=== PATIENT | male | born 1995 | race Hispanic/Latino ===

== ENCOUNTER 2024-02-19 21:48 | Emergency (ER) | payer OTHER ==
[~2024-02-19] VITALS: Ht 180.3 cm; Wt 120.2 kg
[2024-02-19 22:23] LABS: APPEARANCE,URINE CLEAR (CLEAR); BILIRUBIN,URINE NEGATIVE (NEGATIVE); COLOR,URINE COLORLESS (YELLOW); GLUCOSE, URINE (UA) NEGATIVE (NEGATIVE); KETONES,URINE NEGATIVE (NEGATIVE); LEUKOCYTE ESTERASE ,URINE NEGATIVE Leu/uL (NEGATIVE); NITRATE,URINE NEGATIVE (NEGATIVE); OCCULT BLOOD,URINE NEGATIVE (NEGATIVE); PROTEIN,URINE NEGATIVE (NEGATIVE); UROBILINOGEN,URINE 0.2 mg/dL (0.2-1.0)
[2024-02-19 22:24] LABS: ADD UA MICROSCOPIC NO
[2024-02-19 22:26] LABS: AMPHET/METH SCREEN,URINE NEGATIVE (NEGATIVE); BARBITURATE SCREEN, URINE NEGATIVE (NEGATIVE); BENZODIAZEPINES SCREEN,URINE NEGATIVE (NEGATIVE); CANNABINOID SCREEN,URINE NEGATIVE (NEGATIVE); COCAINE SCREEN,URINE NEGATIVE (NEGATIVE); OPIATE SCREEN,URINE NEGATIVE (NEGATIVE); PHENCYCLIDINE SCREEN,URINE NEGATIVE (NEGATIVE)
[2024-02-19] MEDS: LACTATED RINGERS 1000ML 1,000 ML IV ONE (22:52)
[2024-02-19 23:02] LABS: BASOPHILS # (AUTO) 0.05 K/uL (0.00-0.20); BASOPHILS % (AUTO) 0.5 % (0.0-5.0); EOSINOPHILS # (AUTO) 0.08 K/uL (0.00-0.70); EOSINOPHILS % (AUTO) 0.8 % (0.0-8.0); HEMATOCRIT 41.9 % (42-54); IMMATURE GRANULOCYTE ABSOLUTE 0.05 K/uL (0-1); LYMPHOCYTES # (AUTO) 1.5 K/uL (1.0-4.8); LYMPHOCYTES % (AUTO) 14.7 % (21.0-51.0); MEAN CORPUSCULAR HEMOGLOBIN 32.7 pg (27.0-33.0); MEAN CORPUSCULAR HGB CONC 35.1 g/dL (32.0-36.0); MEAN CORPUSCULAR VOLUME 93.3 fL (79-99); MONOCYTES # (AUTO) 1.3 K/uL (0.1-1.0); MONOCYTES % (AUTO) 12.7 % (3.0-13.0); NEUTROPHILS # (AUTO) 7.4 K/uL (1.8-7.7); NEUTROPHILS % (AUTO) 70.8 % (40.0-77.0); PLATELET COUNT (AUTO) 252 K/uL (130-400); RED BLOOD CELL COUNT(AUTO) 4.49 MIL/uL (4.50-6.20); RED CELL DISTRIBUTION WIDTH 11.8 % (11.0-15.5); WHITE BLOOD COUNT (AUTO) 10.4 K/uL (4.8-10.8)
[2024-02-19 23:11] LABS: CREATININE 1.2 mg/dL (0.5-1.3); POTASSIUM 3.6 mmol/L (3.5-5.1)
[2024-02-19 23:18] LABS: ALBUMIN 3.8 g/dL (3.5-5.0); BILIRUBIN,TOTAL 0.3 mg/dL (0.2-1.0); TOTAL PROTEIN, SERUM 7.3 g/dL (6.0-8.3)
[2024-02-19] MEDS: ACETAMINOPHEN 500 MG TABLET PO ONE (23:38)
[2024-02-19] MEDS ORDERED: PANT40TA55 PO (23:53)
[2024-02-20 00:02] VITALS: BP 135/83; PULSE 88; RESP 18; O2SAT 98
== END 2024-02-20 00:03 | disposition home or self-care (01) ==
LOC: EDH 21:48
DX: K29.70 Gastritis, unspecified, without bleeding (principal); I10 Essential (primary) hypertension; Z88.5 Allergy status to narcotic agent
CPT/HCPCS: 99284; 74176; 80053; 80305; 85025; 36415; 81003; J7120

== ENCOUNTER 2024-02-24 01:58 | Emergency (ER) | payer OTHER ==
[~2024-02-24] VITALS: Ht 182.9 cm; Wt 115.7 kg
[~2024-02-24 01:58] MED LIST: PANT40TA55 PO
[2024-02-24] MEDS: KETOROLAC 30MG VIAL (30MG/ML) IVP ONE (02:12)
[2024-02-24 02:19] LABS: BASOPHILS # (AUTO) 0.06 K/uL (0.00-0.20); BASOPHILS % (AUTO) 0.5 % (0.0-5.0); EOSINOPHILS # (AUTO) 0.05 K/uL (0.00-0.70); EOSINOPHILS % (AUTO) 0.4 % (0.0-8.0); HEMATOCRIT 42.2 % (42-54); IMMATURE GRANULOCYTE ABSOLUTE 0.04 K/uL (0-1); LYMPHOCYTES # (AUTO) 1.6 K/uL (1.0-4.8); LYMPHOCYTES % (AUTO) 13.8 % (21.0-51.0); MEAN CORPUSCULAR HEMOGLOBIN 32.1 pg (27.0-33.0); MEAN CORPUSCULAR HGB CONC 35.3 g/dL (32.0-36.0); MEAN CORPUSCULAR VOLUME 90.9 fL (79-99); MONOCYTES # (AUTO) 1.4 K/uL (0.1-1.0); MONOCYTES % (AUTO) 12.5 % (3.0-13.0); NEUTROPHILS # (AUTO) 8.3 K/uL (1.8-7.7); NEUTROPHILS % (AUTO) 72.5 % (40.0-77.0); PLATELET COUNT (AUTO) 269 K/uL (130-400); RED BLOOD CELL COUNT(AUTO) 4.64 MIL/uL (4.50-6.20); RED CELL DISTRIBUTION WIDTH 11.7 % (11.0-15.5); WHITE BLOOD COUNT (AUTO) 11.5 K/uL (4.8-10.8)
[2024-02-24 02:31] LABS: CREATININE 1.6 mg/dL (0.5-1.3)
[2024-02-24 02:35] LABS: BILIRUBIN,TOTAL 0.5 mg/dL (0.2-1.0); TOTAL PROTEIN, SERUM 7.8 g/dL (6.0-8.3)
[2024-02-24 02:35] LABS: APPEARANCE,URINE CLEAR (CLEAR); BILIRUBIN,URINE NEGATIVE (NEGATIVE); COLOR,URINE COLORLESS (YELLOW); GLUCOSE, URINE (UA) NEGATIVE (NEGATIVE); KETONES,URINE NEGATIVE (NEGATIVE); LEUKOCYTE ESTERASE ,URINE NEGATIVE Leu/uL (NEGATIVE); NITRATE,URINE NEGATIVE (NEGATIVE); OCCULT BLOOD,URINE NEGATIVE (NEGATIVE); PROTEIN,URINE NEGATIVE (NEGATIVE); UROBILINOGEN,URINE 0.2 mg/dL (0.2-1.0)
[2024-02-24 02:36] LABS: RBC,URINE 0-1 /HPF (0-1); WBC,URINE 0-1 /HPF (0-1)
[2024-02-24] MEDS: ACETAMINOPHEN WITH CODEINE 1 TAB TAB PO ONE ×2 (02:48→04:04)
[2024-02-24] MEDS ORDERED: KETO10TA2 PO (03:32)
[2024-02-24] MEDS: BACLOFEN 10 MG TABLET PO SCH (03:38)
[2024-02-24] MEDS: FAMOTIDINE 20MG VIAL IV ONE (03:38)
[2024-02-24] MEDS: LACTATED RINGERS 1000ML 1,000 ML IV ONE (03:39)
[2024-02-24 03:53] VITALS: BP 134/82; PULSE 73; RESP 18; O2SAT 97
[2024-02-24] MEDS: KETOROLAC 15MG/ML VIAL (15MG/ML) IV ONE (04:04)
== END 2024-02-24 04:22 | disposition home or self-care (01) ==
LOC: EDH 01:58
DX: R10.9 Unspecified abdominal pain (principal); G43.909 Migraine, unspecified, not intractable, without status migrainosus; I10 Essential (primary) hypertension; Z88.5 Allergy status to narcotic agent; Z88.8 Allergy status to other drugs, medicaments and biological substances
CPT/HCPCS: 99285; 74176; 96374; 96375; 80053; 85025; 81001; 36415; 96376; J7120; J3490; J1885 ×2

== ENCOUNTER 2024-04-08 08:48 | Inpatient (IN) | payer OTHER ==
[~2024-04-08] VITALS: Ht 182.9 cm; Wt 109.1 kg
[~2024-04-08 08:48] MED LIST changes: +KETO10TA2 PO
[2024-04-08 10:03] LABS: BASOPHILS # (AUTO) 0.05 K/uL (0.00-0.20); BASOPHILS % (AUTO) 0.5 % (0.0-5.0); EOSINOPHILS # (AUTO) 0.19 K/uL (0.00-0.70); HEMATOCRIT 43.2 % (42-54); IMMATURE GRANULOCYTE ABSOLUTE 0.03 K/uL (0-1); LYMPHOCYTES # (AUTO) 1.1 K/uL (1.0-4.8); LYMPHOCYTES % (AUTO) 11.1 % (21.0-51.0); MEAN CORPUSCULAR HGB CONC 35.2 g/dL (32.0-36.0); MEAN CORPUSCULAR VOLUME 93.9 fL (79-99); MONOCYTES # (AUTO) 1.3 K/uL (0.1-1.0); MONOCYTES % (AUTO) 13.9 % (3.0-13.0); NEUTROPHILS # (AUTO) 6.9 K/uL (1.8-7.7); NEUTROPHILS % (AUTO) 72.2 % (40.0-77.0); PLATELET COUNT (AUTO) 159 K/uL (130-400); RED CELL DISTRIBUTION WIDTH 11.8 % (11.0-15.5); WHITE BLOOD COUNT (AUTO) 9.5 K/uL (4.8-10.8)
[2024-04-08] MEDS: KETOROLAC 15MG/ML VIAL (15MG/ML) IM ONE (10:21)
[2024-04-08 10:31] LABS: ALBUMIN 3.6 g/dL (3.5-5.0); BILIRUBIN,TOTAL 0.7 mg/dL (0.2-1.0); CREATININE 0.7 mg/dL (0.5-1.3); POTASSIUM 3.4 mmol/L (3.5-5.1); TOTAL PROTEIN, SERUM 7.7 g/dL (6.0-8.3)
[2024-04-08 10:58] LABS: INR 1.08 (0.85-1.15); PROTHROMBIN TIME 11.6 SEC (9.6-11.6)
[2024-04-08 10:59] LABS: PARTIAL THROMBOPLASTIN TIME 26.8 SEC (26.3-35.5)
[2024-04-08] MEDS ORDERED: ONDANSETRON 4MG INJ IV PRN (11:00)
[2024-04-08] MEDS ORDERED: MAGNESIUM 2GM PREMIX 50ML 50 ML IV PRN (11:00)
[2024-04-08] MEDS ORDERED: ZOLPIDEM TARTRATE 5 MG TAB PO PRN (11:00)
[2024-04-08] MEDS ORDERED: MAG/ALUM/SIMETH 30 ML UDCUP PO PRN (11:00)
[2024-04-08] MEDS ORDERED: FAMOTIDINE 20MG VIAL IV PRN (11:00)
[2024-04-08] MEDS ORDERED: DiphenhydrAMINE HCL 50 MG/ML VIAL IV PRN (11:00)
[2024-04-08] MEDS ORDERED: GLUCAGON 1MG KIT 1 MG ML IM PRN (11:00)
[2024-04-08] MEDS ORDERED: LACTULOSE 20 GM/30 ML UDCUP PO PRN (11:00)
[2024-04-08] MEDS ORDERED: HYDRALAZINE 20MG/ML VIAL IV PRN (11:00)
[2024-04-08] MEDS ORDERED: DEXTROSE 50%-WATER 50 ML DISP.SYRIN IV PRN (11:00)
[2024-04-08] MEDS ORDERED: GUAIFENESIN-DM 200/20 MG 10 ML PO PRN (11:00)
[2024-04-08] MEDS ORDERED: POTASSIUM CHLORIDE 10% ELIXIR 20 MEQ/15 ML UDCUP PO PRN (11:00)
[2024-04-08] MEDS ORDERED: POTASSIUM CHLORIDE 10MEQ/100ML 100 ML IV PRN (11:00)
[2024-04-08] MEDS ORDERED: ACETAMINOPHEN 325 MG TAB PO PRN ×2 (11:00)
[2024-04-08] MEDS: HEPARIN 5,000 UNIT VIAL IV PRN (11:15)
[2024-04-08] MEDS: HEPARIN 25,000 UNITS/250ML D5W 250 ML IV SCH (11:17)
[2024-04-08] MEDS: INSULIN HUMULIN R 100 UNIT/ML 3ML SQ SCH (11:30)
[2024-04-08] MEDS: KETOROLAC 15MG/ML VIAL (15MG/ML) IV PRN (17:05)
[2024-04-08] MEDS: ACETAMINOPHEN 325 MG TAB PO PRN (17:06)
[2024-04-08] MEDS ORDERED: LOSA100T59 PO (19:21)
[2024-04-08] MEDS ORDERED: KETOROLAC 10 MG TABLET PO SCH (21:00)
[2024-04-08] MEDS: HYDROCODONE/ACETAMINOPHEN 5/325 MG TAB PO SCH (21:39)
[2024-04-08] MEDS: FAMOTIDINE 20MG VIAL IV SCH (21:40)
[2024-04-08 23:20] VITALS: BP 135/88; PULSE 50; RESP 16
[2024-04-09] MEDS: HYDROCODONE/ACETAMINOPHEN 5/325 MG TAB ONE (03:19)
[2024-04-09] MEDS: HYDROCODONE/ACETAMINOPHEN 5/325 MG TAB PO PRN (03:20)
[2024-04-09] MEDS ORDERED: HYDROCODONE/ACETAMINOPHEN 5/325 MG TAB PO PRN (03:30)
[2024-04-09 03:33] LABS: BASOPHILS # (AUTO) 0.04 K/uL (0.00-0.20); BASOPHILS % (AUTO) 0.5 % (0.0-5.0); EOSINOPHILS # (AUTO) 0.19 K/uL (0.00-0.70); EOSINOPHILS % (AUTO) 2.5 % (0.0-8.0); HEMATOCRIT 42.3 % (42-54); IMMATURE GRANULOCYTE ABSOLUTE 0.05 K/uL (0-1); LYMPHOCYTES # (AUTO) 1.7 K/uL (1.0-4.8); LYMPHOCYTES % (AUTO) 21.9 % (21.0-51.0); MEAN CORPUSCULAR HEMOGLOBIN 32.2 pg (27.0-33.0); MEAN CORPUSCULAR VOLUME 94.6 fL (79-99); MONOCYTES # (AUTO) 1.3 K/uL (0.1-1.0); MONOCYTES % (AUTO) 16.6 % (3.0-13.0); NEUTROPHILS # (AUTO) 4.5 K/uL (1.8-7.7); NEUTROPHILS % (AUTO) 57.9 % (40.0-77.0); PLATELET COUNT (AUTO) 204 K/uL (130-400); RED BLOOD CELL COUNT(AUTO) 4.47 MIL/uL (4.50-6.20); RED CELL DISTRIBUTION WIDTH 11.9 % (11.0-15.5); WHITE BLOOD COUNT (AUTO) 7.7 K/uL (4.8-10.8)
[2024-04-09 03:52] LABS: HEMOGLOBIN A1C 4.7 % (4.0-6.0)
[2024-04-09 03:53] VITALS: BP 128/92; PULSE 66; RESP 16
[2024-04-09 04:01] LABS: ALBUMIN 3.3 g/dL (3.5-5.0); BILIRUBIN,DIRECT 0.2 mg/dL (0.0-0.3); BILIRUBIN,TOTAL 0.7 mg/dL (0.2-1.0); CREATININE 0.9 mg/dL (0.5-1.3); MAGNESIUM 2.2 mg/dL (1.80-2.40); POTASSIUM 3.7 mmol/L (3.5-5.1); TOTAL PROTEIN, SERUM 7.1 g/dL (6.0-8.3)
[2024-04-09 08:00] VITALS: BP 107/66; PULSE 57; RESP 19; O2SAT 96
[2024-04-09] MEDS: PANTOPRAZOLE 40 MG TAB DR PO SCH (08:26)
[2024-04-09 11:54] VITALS: BP 121/78; PULSE 57; RESP 18
[2024-04-09 16:00] VITALS: BP 118/78; PULSE 60; RESP 19
[2024-04-09] MEDS: WARFARIN SODIUM 5 MG TAB PO SCH (16:14)
[2024-04-09] MEDS: NITROGLYCERIN 0.4 MG SL TAB SL PRN (19:00)
[2024-04-09 20:00] VITALS: BP 130/76; PULSE 58; RESP 17
[2024-04-09] MEDS ORDERED: MORPHINE 2 MG SYG IVP PRN (23:00)
[2024-04-10] VITALS: BP 135/74; PULSE 77; RESP 18
[2024-04-10 02:47] LABS: BASOPHILS # (AUTO) 0.05 K/uL (0.00-0.20); BASOPHILS % (AUTO) 0.7 % (0.0-5.0); EOSINOPHILS # (AUTO) 0.16 K/uL (0.00-0.70); EOSINOPHILS % (AUTO) 2.2 % (0.0-8.0); HEMATOCRIT 42.3 % (42-54); IMMATURE GRANULOCYTE ABSOLUTE 0.05 K/uL (0-1); LYMPHOCYTES # (AUTO) 1.3 K/uL (1.0-4.8); LYMPHOCYTES % (AUTO) 17.8 % (21.0-51.0); MEAN CORPUSCULAR HEMOGLOBIN 33.3 pg (27.0-33.0); MEAN CORPUSCULAR HGB CONC 34.5 g/dL (32.0-36.0); MEAN CORPUSCULAR VOLUME 96.6 fL (79-99); MONOCYTES # (AUTO) 1.1 K/uL (0.1-1.0); MONOCYTES % (AUTO) 14.1 % (3.0-13.0); NEUTROPHILS # (AUTO) 4.8 K/uL (1.8-7.7); NEUTROPHILS % (AUTO) 64.5 % (40.0-77.0); PLATELET COUNT (AUTO) 244 K/uL (130-400); RED BLOOD CELL COUNT(AUTO) 4.38 MIL/uL (4.50-6.20); RED CELL DISTRIBUTION WIDTH 11.8 % (11.0-15.5); WHITE BLOOD COUNT (AUTO) 7.4 K/uL (4.8-10.8)
[2024-04-10 02:58] LABS: INR 1.09 (0.85-1.15); PROTHROMBIN TIME 11.7 SEC (9.6-11.6)
[2024-04-10 02:59] LABS: PARTIAL THROMBOPLASTIN TIME 67.1 SEC (26.3-35.5)
[2024-04-10 03:01] LABS: ALBUMIN 3.2 g/dL (3.5-5.0); BILIRUBIN,TOTAL 0.5 mg/dL (0.2-1.0); CREATININE 0.9 mg/dL (0.5-1.3); MAGNESIUM 2.2 mg/dL (1.80-2.40); POTASSIUM 3.4 mmol/L (3.5-5.1); TOTAL PROTEIN, SERUM 7.1 g/dL (6.0-8.3)
[2024-04-10 04:00] VITALS: BP 139/86; PULSE 73; RESP 18
[2024-04-10] MEDS: POTASSIUM CHLORIDE 10MEQ SR TAB PO PRN (06:19)
[2024-04-10 08:00] VITALS: BP 114/64; PULSE 69; RESP 18; O2SAT 95
[2024-04-10 09:00] LABS: INR 1.09 (0.85-1.15); PROTHROMBIN TIME 11.7 SEC (9.6-11.6)
[2024-04-10] MEDS ORDERED: WARFARIN SODIUM 5 MG TAB PO SCH (09:00)
[2024-04-10] MEDS ORDERED: COMPOUND IV REFRIGERATED 1 EACH IVSOLN MISC PRN (09:00)
[2024-04-10] MEDS: FOLIC ACID 5 MG/ML VIAL IV SCH (09:08)
[2024-04-10] MEDS: CYANOCOBALAMIN (VITAMIN B-12) 1,000 MCG TABLET PO SCH (09:08)
[2024-04-10] MEDS: KCL 20 MEQ ERTAB PO ONE (09:08)
[2024-04-10 11:52] VITALS: BP 128/63; PULSE 54; RESP 18
[2024-04-10] MEDS: KETOROLAC 15MG/ML VIAL (15MG/ML) IV PRN (14:38)
[2024-04-10] MEDS ORDERED: IOHEXOL-350 75 ML VIAL IV ONE (15:00)
[2024-04-10 16:08] VITALS: BP 119/72; PULSE 56; RESP 18
[2024-04-10 20:00] VITALS: BP 122/76; PULSE 66; RESP 20
[2024-04-11] VITALS: BP 141/73; PULSE 57; RESP 20
[2024-04-11 04:00] VITALS: BP 122/66; PULSE 57; RESP 20
[2024-04-11 04:54] LABS: BASOPHILS # (AUTO) 0.04 K/uL (0.00-0.20); BASOPHILS % (AUTO) 0.5 % (0.0-5.0); EOSINOPHILS # (AUTO) 0.06 K/uL (0.00-0.70); EOSINOPHILS % (AUTO) 0.7 % (0.0-8.0); HEMATOCRIT 41.5 % (42-54); IMMATURE GRANULOCYTE ABSOLUTE 0.04 K/uL (0-1); LYMPHOCYTES # (AUTO) 1.5 K/uL (1.0-4.8); LYMPHOCYTES % (AUTO) 17.4 % (21.0-51.0); MEAN CORPUSCULAR HEMOGLOBIN 32.7 pg (27.0-33.0); MEAN CORPUSCULAR HGB CONC 34.7 g/dL (32.0-36.0); MEAN CORPUSCULAR VOLUME 94.1 fL (79-99); MONOCYTES # (AUTO) 1.4 K/uL (0.1-1.0); MONOCYTES % (AUTO) 15.8 % (3.0-13.0); NEUTROPHILS # (AUTO) 5.6 K/uL (1.8-7.7); NEUTROPHILS % (AUTO) 65.1 % (40.0-77.0); PLATELET COUNT (AUTO) 284 K/uL (130-400); RED BLOOD CELL COUNT(AUTO) 4.41 MIL/uL (4.50-6.20); RED CELL DISTRIBUTION WIDTH 11.8 % (11.0-15.5); WHITE BLOOD COUNT (AUTO) 8.5 K/uL (4.8-10.8)
[2024-04-11 05:06] LABS: ALBUMIN 3.2 g/dL (3.5-5.0); BILIRUBIN,TOTAL 0.6 mg/dL (0.2-1.0); CREATININE 0.8 mg/dL (0.5-1.3); MAGNESIUM 2.1 mg/dL (1.80-2.40); POTASSIUM 3.5 mmol/L (3.5-5.1); TOTAL PROTEIN, SERUM 7.2 g/dL (6.0-8.3)
[2024-04-11 05:09] LABS: INR 1.11 (0.85-1.15); PROTHROMBIN TIME 11.9 SEC (9.6-11.6)
[2024-04-11 08:15] VITALS: BP 128/75; PULSE 68; RESP 16
[2024-04-11] MEDS: APIXABAN 5 MG TABLET PO SCH (10:27)
[2024-04-11 11:31] VITALS: BP 113/63; PULSE 68; RESP 16
[2024-04-11 16:11] VITALS: BP 111/60; PULSE 63; RESP 16
[2024-04-11 20:00] VITALS: BP 119/71; PULSE 59; RESP 16
[2024-04-12] VITALS: BP 142/99; PULSE 63; RESP 20
[2024-04-12 04:00] VITALS: BP 136/91; PULSE 52; RESP 20
[2024-04-12 04:31] LABS: BASOPHILS # (AUTO) 0.04 K/uL (0.00-0.20); BASOPHILS % (AUTO) 0.5 % (0.0-5.0); EOSINOPHILS # (AUTO) 0.06 K/uL (0.00-0.70); EOSINOPHILS % (AUTO) 0.8 % (0.0-8.0); HEMATOCRIT 40.9 % (42-54); IMMATURE GRANULOCYTE ABSOLUTE 0.06 K/uL (0-1); LYMPHOCYTES # (AUTO) 1.1 K/uL (1.0-4.8); LYMPHOCYTES % (AUTO) 13.5 % (21.0-51.0); MEAN CORPUSCULAR HEMOGLOBIN 33.1 pg (27.0-33.0); MEAN CORPUSCULAR HGB CONC 34.5 g/dL (32.0-36.0); MONOCYTES # (AUTO) 1.2 K/uL (0.1-1.0); NEUTROPHILS # (AUTO) 5.3 K/uL (1.8-7.7); NEUTROPHILS % (AUTO) 68.4 % (40.0-77.0); PLATELET COUNT (AUTO) 289 K/uL (130-400); RED BLOOD CELL COUNT(AUTO) 4.26 MIL/uL (4.50-6.20); RED CELL DISTRIBUTION WIDTH 11.5 % (11.0-15.5); WHITE BLOOD COUNT (AUTO) 7.8 K/uL (4.8-10.8)
[2024-04-12 05:46] LABS: ALBUMIN 3.1 g/dL (3.5-5.0); BILIRUBIN,TOTAL 0.5 mg/dL (0.2-1.0); CREATININE 0.9 mg/dL (0.5-1.3); MAGNESIUM 2.1 mg/dL (1.80-2.40); POTASSIUM 3.5 mmol/L (3.5-5.1); TOTAL PROTEIN, SERUM 7.2 g/dL (6.0-8.3)
[2024-04-12 08:13] VITALS: BP 129/70; PULSE 49; RESP 16
[2024-04-12 11:22] VITALS: BP 121/64; PULSE 80; RESP 16
[2024-04-12] MEDS: KCL 20 MEQ ERTAB PO ONE (11:25)
[2024-04-12 12:05] VITALS: PULSE 117; PULSE 89; RESP 18; RESP 20; O2SAT 94; O2SAT 98
[2024-04-12 13:45] LABS: CHOLESTEROL 147 mg/dL (<200); HDL CHOLESTEROL 44 mg/dL (29-71); LDL DIRECT 87 mg/dL (0-99); TRIGLYCERIDES 147 mg/dL (30-200)
[2024-04-12] MEDS ORDERED: APIX5TAB PO (14:40)
[2024-04-12] MEDS ORDERED: CYAN-52 PO (14:40)
[2024-04-18] MEDS ORDERED: APIXABAN 5 MG TABLET PO SCH (09:00)
== END 2024-04-12 16:30 | disposition home or self-care (01) | DRG 299 ==
LOC: EDH 08:48 → EDHIP 08:49 → 4BH 22:37
PROVIDERS: ADMIT Hospitalist; ATTEND Hospitalist
DX: I82.412 Acute embolism and thrombosis of left femoral vein (principal); I26.99 Other pulmonary embolism without acute cor pulmonale; E78.5 Hyperlipidemia, unspecified; E66.01 Morbid (severe) obesity due to excess calories; K29.70 Gastritis, unspecified, without bleeding; F17.210 Nicotine dependence, cigarettes, uncomplicated; G43.909 Migraine, unspecified, not intractable, without status migrainosus; I10 Essential (primary) hypertension; Z79.01 Long term (current) use of anticoagulants; Z83.3 Family history of diabetes mellitus; Z88.5 Allergy status to narcotic agent; Z88.8 Allergy status to other drugs, medicaments and biological substances; Z95.1 Presence of aortocoronary bypass graft; Z68.32 Body mass index [BMI] 32.0-32.9, adult; Z79.899 Other long term (current) drug therapy
CPT/HCPCS: 36415; 71045; 71270; 80053; 80061; 80076; 82140; 82306; 82550; 82948; 83036; 83735; 83880; 84145; 84484; 85025; 85378; 85610; 85730; 93005; 93306; 93880; 93971; 94760; G0378; J1644; J1885; J3490; Q9967